=== PATIENT | male | born 1940 | race Two or more races ===

== ENCOUNTER 2017-03-21 11:29 | Emergency (ER) | payer MEDICARE, OTHER ==
[~2017-03-21] VITALS: Ht 167.6 cm; Wt 74.6 kg
[2017-03-21 11:58] VITALS: BP 157/70; PULSE 76; RESP 16; TEMP 98.5; O2SAT 97
[2017-03-21] MEDS ORDERED: CENTCHW4 CHEW (13:46)
[2017-03-21] MEDS ORDERED: CLOP75TA PO (13:46)
[2017-03-21] MEDS ORDERED: METO25TA3 PO (13:46)
[2017-03-21] MEDS ORDERED: VITA1000 PO (13:46)
[2017-03-21] MEDS ORDERED: DONE10TA7 PO (13:46)
[2017-03-21] MEDS ORDERED: FOSA70TA PO (13:46)
[2017-03-21] MEDS ORDERED: TRAD5TAB PO (13:46)
[2017-03-21] MEDS ORDERED: ATOR20TA15 PO (13:46)
--- NOTE | 2017-03-21 14:10 | PD ---
HPI Chief Complaint: Injury Time Seen by Provider: 13:37 Travel History International Travel<30 days: No Contact w/Intl Traveler<30days: No Traveled to known affect area: No History of Present Illness HPI 76-year-old male presents to the emergency room for evaluation of right posterior shoulder pain after trip and fall 2 days ago. Patient does not speak fluent Amharic but would prefer to have his daughter interpret for him. Patient tripped down 6 steps and landed on his right shoulder. He denies hitting his head or loss of consciousness. Denies any other injuries. He took Motrin for pain without significant relief of symptoms. Pain is localized to the posterior shoulder and radiates into his neck. Worse with range of motion. Denies paresthesias. Denies hand or arm pain. 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 PFSH Past Medical History Hx Anticoagulant Therapy: Yes Cerebrovascular Accident: Yes Diabetes: Yes Patient Takes Glucophage: No Diminished Hearing: No Hypertension: Yes Tetanus Vaccination: Unknown Influenza Vaccination: No ?: Not Past Surgical History Eye Surgery: Yes (cataracts) Social History Alcohol Use: No Tobacco Use: Yes (1/2) Substance Use: No Allergies-Medications (Allergen,Severity, Reaction): Coded Allergies: No Known Allergies (Verified Allergy, Unknown, 03/21/17) Reported Meds & Prescriptions Reported Meds & Active Scripts Active Lortab (Hydrocodone-Acetaminophen) 5-325 Mg Tab 1 Tab PO Q6H PRN Reported Vitamin D-1000 (Cholecalciferol) 1,000 Unit Tab 1,000 Units PO DAILY Centrum (Multiple Vitamins W/ Minerals) 1 Chew 1 Tab CHEW DAILY Fosamax (Alendronate Sodium) 70 Mg Tab 70 Mg PO Q7D Metoprolol Tartrate 25 Mg Tab 25 Mg PO BID Clopidogrel (Clopidogrel Bisulfate) 75 Mg Tab 75 Mg PO DAILY Tradjenta (Linagliptin) 5 Mg Tab 5 Mg PO DAILY Donepezil 10 Mg Tab 10 Mg PO HS Atorvastatin (Atorvastatin Calcium) 20 Mg Tab 20 Mg PO HS Review of Systems Except as stated in HPI: all other systems reviewed are Neg Physical Exam Narrative GENERAL: Well-nourished, well-developed male in no acute distress. Afebrile. Ambulatory. SKIN: Focused skin assessment warm/dry. No erythema or ecchymosis. HEAD: Normocephalic. EYES: No scleral icterus. No injection or drainage. NECK: Supple, trachea midline. No JVD or lymphadenopathy. CARDIOVASCULAR: Regular rate and rhythm without murmurs, gallops, or rubs. RESPIRATORY: Breath sounds equal bilaterally. No accessory muscle use. MSK: Moderate edema of the right posterior shoulder. Patient has significant pain with abduction. Minimal pain with arm resting at his side. 2+ radial pulse. Radial, ulnar, and median nerves intact. There is mild dependent edema of the right hand. No bony tenderness to palpation of the hand, forearm, or humerus. Data Data Last Documented VS Vital Signs Date Time Temp Pulse Resp B/P (MAP) Pulse Ox O2 Delivery O2 Flow Rate FiO2 03/21/17 11:58 98.5 76 16 157/70 (99) 97 Orders Orders Shoulder, Complete (>2vws) (03/21/17 ) Splint Or Brace Apply/Monitor (03/21/17 14:43) MDM Medical Decision Making Medical Screen Exam Complete: Yes Emergency Medical Condition: Yes Medical Record Reviewed: Yes Differential Diagnosis Sprain, strain, fracture, internal derangement, spasm Narrative Course 76-year-old male presents to the emergency room for evaluation of shoulder pain and swelling after injuring it 3 days ago. Patient fell down 6 stairs but denies any other injuries. No loss of consciousness. Right upper extremity is neurovascularly intact with 2+ radial pulse. Radial, ulnar, median nerves intact. Extreme tenderness to palpation of the right posterior shoulder, over the scapula. There is limited abduction secondary to pain. Shoulder x-ray is negative for acute abnormality. I suspect maybe a subtle scapular fracture. Lung sounds clear and equal bilaterally. No increased work of breathing. Vital signs stable. Patient and his family were informed to follow-up with orthopedist for further workup of possible rotator cuff injury. He was discharged with a sling and prescription for Lortab. Told to return for worsening symptoms. He understands and agrees to plan. Diagnosis Primary Impression: Shoulder injury Qualified Codes: S49.91XA - Unspecified injury of right shoulder and upper arm , initial encounter Referrals: Primary Care Physician Additional Instructions: Rest and drink plenty of fluids. Use sling for comfort. Do not use for greater than 3 days. Maintain range of motion to prevent worsening symptoms. Take Lortab as directed, as needed for pain. Do not drink alcohol or drive while taking this medication. Apply ice to the affected area for 20 minutes at a time, as needed for pain and swelling. Follow-up with a primary care physician. Return to the emergency room for worsening symptoms. Med/Other Pt SpecificInfo: Prescription(s) given Scripts Hydrocodone-Acetaminophen (Lortab) 5-325 Mg Tab 1 TAB PO Q6H Y for PAIN, #15 TAB 0 Refills Prov: Joshua Monroe MD 03/21/17 Disposition: 01 DISCHARGE HOME Condition: Stable Nyla Parry Mar 21, 2017 14:10
--- NOTE | 2017-03-21 14:24 | RADRPT ---
EXAM DATE/TIME: 03/21/2017 14:09 [facility] COMPARISON: No previous studies available for comparison. INDICATIONS : Right shoulder pain after falling yesterday. MEDICAL HISTORY : None. SURGICAL HISTORY : None. ENCOUNTER: Initial ACUITY: 2 days PAIN SCORE: 8/10 LOCATION: Right shoulder. FINDINGS: Multiple view examination of the right shoulder demonstrates no evidence of fracture or dislocation. The glenohumeral and acromioclavicular joints are maintained. There is normal range of motion betwe en internal and external rotation. Bony mineralization is normal. CONCLUSION: 1. No acute fracture or dislocation. Efe Simpson MD on March 21, 2017 at 14:22 Board Certified Radiologist. This report was verified electronically.
[2017-03-21] MEDS ORDERED: HYDR-3533 PO (14:58)
== END 2017-03-21 15:13 | disposition home or self-care (01) ==
LOC: PHED 11:29 → PHEFT 15:13
DX: S49.91XA Unspecified injury of right shoulder and upper arm, initial encounter (principal); W19.XXXA Unspecified fall, initial encounter; E11.9 Type 2 diabetes mellitus without complications; I10 Essential (primary) hypertension; Z86.73 Personal history of transient ischemic attack (TIA), and cerebral infarction without residual deficits
CPT/HCPCS: 73030; 99283